=== PATIENT | male | born 1980 | race Hispanic/Latino ===

== ENCOUNTER 2022-01-20 08:00 | Emergency (ER) | payer MEDICAID, OTHER ==
[~2022-01-20] VITALS: Ht 160 cm; Wt 95.0 kg
[2022-01-20] MEDS ORDERED: MECLIZINE HCL 25 MG TABLET ONE (08:21)
[2022-01-20] MEDS ORDERED: MECLIZINE HCL 25 MG TABLET PO SCH (08:30)
[2022-01-20 08:43] LABS: APPEARANCE,URINE Clear (CLEAR); BILIRUBIN,URINE Negative (NEGATIVE); COLOR,URINE Yellow (YELLOW); GLUCOSE, URINE (UA) Negative (NEGATIVE); KETONES,URINE Negative (NEGATIVE); LEUKOCYTE ESTERASE ,URINE Negative (NEGATIVE); NITRATE,URINE Negative (NEGATIVE); OCCULT BLOOD,URINE Negative (NEGATIVE); PH,URINE 7.5 (5.0-8.0); PROTEIN,URINE Negative (NEGATIVE); UROBILINOGEN,URINE 0.2 mg/dL (0.2-1.0)
[2022-01-20 08:51] LABS: AMPHET/METH SCREEN,URINE NEGATIVE (NEGATIVE); BARBITURATE SCREEN, URINE NEGATIVE (NEGATIVE); BENZODIAZEPINES SCREEN,URINE NEGATIVE (NEGATIVE); CANNABINOID SCREEN,URINE NEGATIVE (NEGATIVE); COCAINE SCREEN,URINE NEGATIVE (NEGATIVE); OPIATE SCREEN,URINE NEGATIVE (NEGATIVE); PHENCYCLIDINE SCREEN,URINE NEGATIVE (NEGATIVE)
[2022-01-20] MEDS ORDERED: MECL-160 PO (09:08)
[2022-01-20 09:17] VITALS: BP 139/93
== END 2022-01-20 09:15 | disposition home or self-care (01) ==
LOC: EDH 08:00
DX: R42 Dizziness and giddiness (principal); R11.2 Nausea with vomiting, unspecified
CPT/HCPCS: 80305; 81003